=== PATIENT | female | born 1965 | race Caucasian/White ===

== ENCOUNTER → 2023-05-27 09:20 | Outpatient (REF) | payer BC, SELFPAY ==
[2023-05-27 11:00] LABS: HDL Cholesterol 58 mg/dl; LDL Cholesterol, Calculated 116 mg/dl; Total Cholesterol 199 mg/dl (50-199); Triglyceride 128 mg/dl (10-149); Very Low Density Lipoprotein 25 mg/dl (0-30)
== END ==
LOC: REG 09:20
PROVIDERS: ATTENDING PHYSICIAN Internal Medicine Cardiovascular Disease; FAMILY PHYSICIAN Internal Medicine
DX: I10 Essential (primary) hypertension (principal); E78.5 Hyperlipidemia, unspecified
CPT/HCPCS: 36415; 80061

== ENCOUNTER 2023-10-02 13:21 | Emergency (ER) | payer BC, SELFPAY ==
[2023-10-02 13:23] VITALS: BP 139/94
--- NOTE | 2023-10-02 14:22 | ED.GENMED ---
History of Present Illness
General
Chief Complaint: Medication Reaction
Time Seen by Provider: 10/02/23 13:50
Travel History
Have you had any contact with someone who has COVID-19?: No
Do you have any symptoms of coronavirus? Fever > 100 degrees, chills, cough, shortness of breath, sore throat, loss of taste or smell, muscle aches, or headache?: No
History of Present Illness
History of Present Illness:
Patient presents to the emergency department with erythematous rash. Patient is on capivasertib for breast cancer. Last dose was last . On Tuesday developed erythematous rash to chest and arms. Rash is itchy. There is no blisters. No
mucous membrane involvement. No rash on hands or feet. She was started on Medrol Dosepak took p.o. Benadryl without improvement. Denies any difficulty breathing or intraoral swelling
Past History
Past History
ED Past Medical History: None
ED Past Surgical History: None
Phy Exam
Physical Exam
Physical Exam:
GENERAL APPEARANCE: NAD, well developed/ well nourished
EYES lids/conjunctiva normal
EARS/NOSE/THROAT Mucous membranes moist, uvula midline without oral pharyngeal erythema, exudate or swelling
HEAD/NECK normocephalic atraumatic, neck is supple.
RESPIRATORY respiratory effort normal, speaks in full sentences, no accessory muscle use. Lungs clear to auscultation without rhonchi, wheezes, rales
CARDIAC Regular rate and rhythm, no edema.
ABDOMINAL Soft, ND/NT.
MUSCLES/EXTREMITIES No abnormal range of motion, no swelling.
SKIN coalescing erythematous rash to chest and shoulder region. Small erythematous macular rash to cheeks bilaterally and diffusely across abdomen and back. There is no disclamation. Nikolsky is negative. No mucous Elissa. No palmar or sole
involvement.
NEUROLOGICAL Speech is clear and appropriate. Normal level of consciousness. 5/5 strength in all extremities.
PSYCH Normal mood and affect. Judgement/competence is appropriate
Course
Orders/Labs/Results
Orders:
Orders
10/02/23 14:20
Diphenhydramine [Benadryl] 50 mg IV NOW STA
Famotidine [Pepcid] 20 mg IV NOW STA
MethylPREDNISolone PF [Solu-Medrol Pf] 125 mg IV NOW STA
10/02/23 14:47
Complete Blood Count/With Diff Urgent
Comprehensive Metabolic Panel Urgent
Abnormal Lab Results
10/02/23
14:47
RBC 4.15 L 10^6/uL
(4.20-5.40)
MCH 32.5 H pg
(27.0-31.0)
Absolute Lymphs (auto) 0.6 L 10^3/uL
(1.2-3.4)
Neutrophils % 82.2 H %
(42.2-75.2)
Lymphocytes % 10.5 L %
(20.5-51.1)
BUN 23 H mg/dl
(7-17)
AST 39 H U/L
(14-36)
ALT 36 H U/L
(0-35)
10/02/23 14:47
10/02/23 14:47
Vital Signs
Initial and Last Documented VS:
Initial Vital Signs
Temp Pulse Resp BP Pulse Ox
98.2 F 72 18 139/94 96
10/02/23 13:23 10/02/23 13:23 10/02/23 13:23 10/02/23 13:23 10/02/23 13:23
Last Documented Vital Signs
Temp Pulse Resp BP Pulse Ox
98.2 F 61 18 141/83 100
10/02/23 13:23 10/02/23 16:30 10/02/23 16:30 10/02/23 16:30 10/02/23 16:30
*Critical Care Note
Total Time (30-74mins, 75-104mins- exclusive of procedures): Not Applicable
ED Attending Note
ED Attending Note
ED Attending Note:
Erythematous rash noted to be a side effect of this medication greater than 10% of patients. Will treat with Benadryl Solu-Medrol Pepcid and reassess
-
Portions of this chart may have been created with voice recognition software.� Occasional wrong word or��sound alike� substitutions may have occurred due to the inherent limitations of voice recognition software.
Discharge Plan
Departure
Patient Disposition: Home (Routine Discharge)
Date of Disposition: 10/02/23
Time of Disposition: 16:09
Patient with high blood pressure during this ER visit?: No
Discharge Problem:
Hypersensitivity reaction
Prescriptions:
New
prednisone 50 mg tablet
50 mg PO DAILY Qty: 5 0RF
No Action
escitalopram oxalate 10 MG tablet
10 mg PO DAILY
amlodipine 5 mg tablet
5 mg PO DAILY Qty: 30 0RF
Referrals:
Rodolfo Scanlon, [Family Provider] -
Activity Restrictions/Additional Instructions:
return to ER with worsening symptoms including oral swelling, difficulty breathing, or other concerning symptoms
follow up with your doctor in the next few days for recheck
Interventions
Interventions:
*Risk Screen - Suicide Last Done: 10/02/23 14:39
*General Assessment Last Done: 10/02/23 14:39
*Neglect/Abuse Screening Last Done: 10/02/23 15:00
ED- Fall Risk Assessment Last Done: 10/02/23 15:00
*ED COVID-19 Vaccine History Last Done: 10/02/23 14:39
*Nursing Disposition Last Done: 10/02/23 17:00
ED-Skin Assessment Last Done: 10/02/23 15:00
ED- Pulmonary Assessment Last Done: 10/02/23 15:00
ED-EENT Assessment Last Done: 10/02/23 15:00
Discharge Date and Time
Discharge Date/Time: 10/02/23 17:04
Print Language: [id number]
[2023-10-02 14:38] VITALS: BMI 32.0
[2023-10-02] MEDS: BENADRYL 50 MG IV (14:48)
[2023-10-02] MEDS: SOLU-MEDROL PF 125 MG IV (14:48)
[2023-10-02] MEDS: PEPCID 20 MG IV (14:48)
[2023-10-02 15:00] VITALS: BP 158/84
[2023-10-02 15:06] LABS: % Basophils 0.2 % (0-2); % Eosinophils 1.9 % (0-6); % Immature Granulocytes 0.4 % (0-0.5); % Lymphocytes 10.5 % (20.5-51.1); % Monocytes 4.8 % (1.7-9.3); % Neutrophils 82.2 % (42.2-75.2); Absolute Eosinophils 0.1 10^3/uL (0-0.7); Absolute Lymphocytes 0.6 10^3/uL (1.2-3.4); Absolute Monocytes 0.3 10^3/uL (0.1-0.6); Absolute Neutrophils 4.3 10^3/uL (1.4-6.5); Hematocrit 39.8 % (37.0-47.0); Hemoglobin 13.5 g/dL (12.0-16.0); Mean Corp Hgb Conc. 33.9 g/dL (33.0-37.0); Mean Corpuscular Hgb 32.5 pg (27.0-31.0); Mean Corpuscular Volume 95.9 fL (81.0-99.0); Mean Platelet Volume 9.6 fL (7.4-10.4); Nucleated Red Blood Cells % 0 %; Platelet Count 163 10^3/uL (130-400); Red Blood Cell Count 4.15 10^6/uL (4.20-5.40); Red Cell Dist. Width 12.9 % (11.5-14.5); White Blood Cell Count 5.2 10^3/uL (4.8-10.8)
[2023-10-02 15:19] LABS: ALT (SGPT) 36 U/L (0-35); AST (SGOT) 39 U/L (14-36); Albumin 4.8 g/dl (3.5-5.0); Alkaline Phosphatase 107 U/L (38-126); Blood Urea Nitrogen 23 mg/dl (7-17); Calcium 10.1 mg/dl (8.4-10.2); Carbon Dioxide 24 mmol/L (22-30); Chloride 107 mmol/L (98-107); Estimated Creatinine Clearance 89 ml/min; Glucose 93 mg/dl (70-99); Potassium 4.3 mmol/L (3.5-5.1); Sodium 140 mmol/L (135-145); Total Bilirubin 0.4 mg/dl (0.2-1.3); Total Protein 7.4 g/dl (6.3-8.2); eGFR > 60.00
[2023-10-02 16:30] VITALS: BP 141/83
== END 2023-10-02 17:04 | disposition home or self-care (01) ==
LOC: EMR 13:21
PROVIDERS: EMERGENCY PHYSICIAN Emergency Medicine; FAMILY PHYSICIAN Internal Medicine
DX: T78.40XA Allergy, unspecified, initial encounter (principal); L53.9 Erythematous condition, unspecified; L29.9 Pruritus, unspecified; C50.919 Malignant neoplasm of unspecified site of unspecified female breast
CPT/HCPCS: 99284; 96374; 96375 ×2; 80053; 85025

== ENCOUNTER → 2024-05-14 09:05 | Outpatient (REF) | payer BC, SELFPAY ==
[2024-05-14 09:55] LABS: Urine Albumin Trace (Neg - Trace); Urine Bilirubin Negative (Negative); Urine Character Clear (Clear); Urine Color Yellow; Urine Glucose Negative (Negative); Urine Ketone Negative (Negative); Urine Leukocyte Negative (Negative); Urine Nitrite Negative (Negative); Urine Occult Blood Negative (Negative); Urine Urobilinogen Negative (Neg - 1+)
[2024-05-14 10:07] LABS: HDL Cholesterol 49 mg/dl; LDL Cholesterol, Calculated 86 mg/dl; Total Cholesterol 194 mg/dl (50-199); Triglyceride 295 mg/dl (10-149); Very Low Density Lipoprotein 59 mg/dl (0-30)
[2024-05-14 10:25] LABS: Vitamin D, 25-OH*** 35.3 ng/mL (30-80)
[2024-05-14 10:38] LABS: TSH Reflex To Free T4 1.21 uIU/ml (0.47-4.68)
[2024-05-14 11:14] LABS: Folate 18.3 ng/ml (2.76-20); Vitamin B12 919 pg/ml (239-931)
== END ==
LOC: REG 09:05
PROVIDERS: ATTENDING PHYSICIAN Nurse Practitioner Family
DX: C50.911 Malignant neoplasm of unspecified site of right female breast (principal); Z17.0 Estrogen receptor positive status [ER+]; J45.40 Moderate persistent asthma, uncomplicated; R41.1 Anterograde amnesia; Z01.89 Encounter for other specified special examinations; K76.0 Fatty (change of) liver, not elsewhere classified; E66.09 Other obesity due to excess calories; Z68.33 Body mass index [BMI] 33.0-33.9, adult; E66.811 Obesity, class 1; D75.89 Other specified diseases of blood and blood-forming organs; R20.2 Paresthesia of skin; E55.9 Vitamin D deficiency, unspecified
CPT/HCPCS: 36415; 80061; 81003; 82306; 82607; 82746; 84443

== ENCOUNTER → 2024-06-14 08:59 | Outpatient (REF) | payer BC, SELFPAY ==
[2024-06-14 09:54] LABS: % Immature Granulocytes 0.4 % (0-0.5); % Lymphocytes 9.1 % (20.5-51.1); % Monocytes 7.7 % (1.7-9.3); % Neutrophils 82.8 % (42.2-75.2); Absolute Lymphocytes 0.4 10^3/uL (1.2-3.4); Absolute Monocytes 0.4 10^3/uL (0.1-0.6); Hematocrit 36.6 % (37.0-47.0); Hemoglobin 12.8 g/dL (12.0-16.0); Mean Corpuscular Hgb 39.3 pg (27.0-31.0); Mean Corpuscular Volume 112.3 fL (81.0-99.0); Mean Platelet Volume 9.9 fL (7.4-10.4); Nucleated Red Blood Cells % 0 %; Platelet Count 138 10^3/uL (130-400); Red Blood Cell Count 3.26 10^6/uL (4.20-5.40); Red Cell Dist. Width 14.6 % (11.5-14.5); White Blood Cell Count 4.8 10^3/uL (4.8-10.8)
[2024-06-14 11:06] LABS: ALT (SGPT) 26 U/L (0-35); AST (SGOT) 34 U/L (14-36); Albumin 4.8 g/dl (3.5-5.0); Alkaline Phosphatase 88 U/L (38-126); Blood Urea Nitrogen 26 mg/dl (7-17); Calcium 9.8 mg/dl (8.4-10.2); Carbon Dioxide 24 mmol/L (22-30); Chloride 106 mmol/L (98-107); Glucose 87 mg/dl (70-99); Potassium 4.4 mmol/L (3.5-5.1); Sodium 141 mmol/L (135-145); Total Bilirubin 0.8 mg/dl (0.2-1.3); Total Protein 7.6 g/dl (6.3-8.2); eGFR > 60.00
[2024-06-14 11:48] LABS: Glycohemoglobin (HgbA1c) 4.8 % (4.0-5.6)
[2024-06-15 14:35] LABS: Insulin, Random 12 uIU/mL
== END ==
LOC: REG 08:59
PROVIDERS: ATTENDING PHYSICIAN Physician Assistant; FAMILY PHYSICIAN Internal Medicine
DX: E78.2 Mixed hyperlipidemia (principal); E88.810 Metabolic syndrome; K76.0 Fatty (change of) liver, not elsewhere classified; Z13.1 Encounter for screening for diabetes mellitus; E66.09 Other obesity due to excess calories
CPT/HCPCS: 36415; 80053; 80061; 83036; 83525; 83704; 85025

== ENCOUNTER → 2024-08-14 09:22 | Outpatient (REF) | payer BC, SELFPAY | LOC: RCS 09:22 | PROVIDERS: ATTENDING PHYSICIAN Internal Medicine Cardiovascular Disease; FAMILY PHYSICIAN Nurse Practitioner Family | DX: I77.810 Thoracic aortic ectasia (principal) | CPT/HCPCS: 93306; 93356 ==

== ENCOUNTER 2025-03-26 06:35 | Day surgery (SDC) | payer BC, SELFPAY | END 2025-03-26 15:23 | disposition home or self-care (01) | LOC: GI 06:35 | PROVIDERS: ATTENDING PHYSICIAN Internal Medicine Gastroenterology | DX: C78.5 Secondary malignant neoplasm of large intestine and rectum (principal); R93.3 Abnormal findings on diagnostic imaging of other parts of digestive tract; K57.30 Diverticulosis of large intestine without perforation or abscess without bleeding; K64.8 Other hemorrhoids; K63.89 Other specified diseases of intestine; R12 Heartburn; K22.89 Other specified disease of esophagus; K44.9 Diaphragmatic hernia without obstruction or gangrene; D12.0 Benign neoplasm of cecum; Z85.3 Personal history of malignant neoplasm of breast; Z86.0101 Personal history of adenomatous and serrated colon polyps | CPT/HCPCS: 45380; 43239; 88305; 88341; 88342; 88360 ==